=== PATIENT | male | born 1990 | race Caucasian/White ===

== ENCOUNTER 2023-11-11 14:26 | Outpatient (AMB) | payer BC, SELFPAY ==
[2023-11-11 14:27] VITALS: BP 110/76; PULSE 67; TEMP 36.9; O2SAT 99; BMI 20.4
--- NOTE | 2023-11-11 14:27 | AM.OFFWIN_ITS ---
Intake Vital Signs 3 11/11/23 14:27 Height 5 ft 7 in Weight 58.967 kg BMI 20.4 BP 110/76 Blood Pressure Location Rt brachial Position Sitting Pulse 67 Pulse Source Pulse Oximeter Temp 98.5 F Temp Source Oral Pulse Oximetry (%) 99 Oxygen Delivery Method Room Air Intake Visit Reasons: [employer] Rt leg swollen vein Intake Note: pt here for swollen vein in Rt. leg. Was moving boxes, pivoted box on my knee and felt pain Patient Tobacco Use Status: Never used Tobacco Allergies No Known Allergies Allergy (Verified 11/11/23 14:33) Do you need a note to return to daycare/school/sports/work: No HPI [employer] Rt leg swollen vein 2 HPI0 Details Patient presents with right anterior superior knee pain that began this morning while moving boxes into a new living space. He denies acute trauma but noted after pushing a box with his knee he noted the area of swelling, tenderness. He notes there is now less swelling after rest. He denies any history of injury or surgery with the knee. Denies other injury. 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 [facility] Social History Patient Tobacco Use Status: Never used Tobacco Review of Systems Const Reports as per HPI and Reports no additional complaints Musc Reports no additional complaints and Reports as per HPI Skin/Breast Denies lesions Neuro Reports no additional complaints and Reports as per HPI Physical Exam Vital Signs: Last Vital Signs Temp 98.5 F 11/11/23 14:27 Pulse 67 11/11/23 14:27 BP 110/76 11/11/23 14:27 Pulse Ox 99 11/11/23 14:27 Oxygen Delivery Method Room Air 11/11/23 14:27 BMI result Body Mass Index 20.4 Const General: cooperative, comfortable and no acute distress Orientation/consciousness: patient oriented x3 Neuro General: patient oriented x3 Extrem Right lower extremity: normal to inspection and full ROM Left lower extremity: normal to inspection, full ROM, normal capillary refill, no joint enlargement, hip/thigh Details: normal to inspection; no tenderness, no swelling and ROM abnormal and knee (Distal neurovascular status intact) Details: normal to inspection, tenderness (Mild along the superior knee at quadriceps tendon), normal ROM, knee ligament exam normal, Karel's Test Details: negative medially and laterally and other (No patellar motion tenderness); no swelling, no ecchymosis and no crepitus; no edema Knee images: 2 1. Area of tenderness Assessment & Plan Assessment & Plan (1) Right knee sprain: Code(s): S83.91XA - Sprain of unspecified site of right knee, initial encounter Qualifiers: Encounter type: initial encounter Involved ligament of knee: u nspecified ligament Qualified Code(s): S83.91XA - Sprain of unspecified site of right knee, initial encounter Plan: Offered patient x-ray, declines today. Advised on self-care rest ice elevate NSAIDs. Work note given for light duty for the remainder of the week. Return to clinic if symptoms do not improve over the next 1-2 weeks or worsen with swelling, pain, giving out, locking. Coding Level of Care Code New Pt Level 3 (82219) Diagnoses Sprain of right knee, unspecified ligament, initial encounter S83.91XA Encounter type: initial encounter Involved ligament of knee: unspecified ligament
== END 2023-11-11 14:49 | disposition home or self-care (01) ==
PROVIDERS: Visit Provider Physician Assistant
DX: S83.91XA Sprain of unspecified site of right knee, initial encounter (principal)
CPT/HCPCS: 99203

== ENCOUNTER 2024-07-03 22:44 | Emergency (ER) | payer BC, SELFPAY ==
[2024-07-03 22:51] VITALS: BP 121/70; PULSE 72; RESP 16; TEMP 37.1; O2SAT 99; BMI 20.4
--- NOTE | 2024-07-04 01:44 | ED_ITS ---
HPI - Animal Bite General Chief Complaint: Animal Bite Stated Complaint: cat bite left hand Time Seen by Provider: 07/04/24 01:36 Source: patient Mode of arrival: ambulatory Limitations: no limitations History of Present Illness ED Provider: Dr. Kelly Patterson HPI narrative: Patient comes to the emergency room complaining of a cat bite to left hand. Patient states that the cat is up-to-date with its immunizations, patient is up-to-date with his Tdap shot. According to the patient, the cat is usually a very easy going cat. However, today the patient gave the cat a bath, and because it was cold, patient attempted to blow dry the cat, it got scared about the blow rotary drier and then bit the patient in the hand. Patient states that he has soaked his hand in water and soap, applied alcohol and then came to the emergency room. Patient states that his hand feels well, almost no pain. Related Data Previous Rx's ?Medication ?Instructions ?Recorded amoxicillin 500 mg-potassium 1 tab PO TID 5 days #15 tabs 07/04/24 clavulanate 125 mg tablet (Augmentin) ibuprofen 600 mg tablet 600 mg PO Q8H PRN fever or pain 07/04/24 #20 tabs Allergies Allergy/AdvReac Type Severity Reaction Status Date / Time No Known Allergies Allergy Verified 07/03/24 22:54 Review of Systems Review of Systems: Constitutional : No Weight loss, No Fever, No Chills, No Night Sweats, No Fatigue, No Malaise ENT/Mouth : No Hearing loss, No Ear Pain, No Nasal Congestion, No Sinus Pain, No Hoarseness, No sore throat, No Rhinorrhea, No Swallowing Difficulty Eyes: No Eye Pain, No Swelling, No Redness, No Foreign Body, No Discharge, No Vision Changes Cardiovascular : No Chest Pain, No SOB, No Dyspnea on Exertion, No Orthopnea, No Edema, No Palpitations Respiratory : No Cough, No Sputum, No Wheezing, No Smoke Exposure, No Dyspnea Gastrointestinal : No Nausea, No Vomiting, No Diarrhea, No Constipation, No abdominal Pain, No Hematochezia, No Melena Genitourinary : no irregular bleeding, No Dysuria, No Urinary Frequency, No Hematuria, No Urinary Incontinence, No Urgency, No Flank Pain, No Urinary Flow Changes, No Hesitancy Musculoskeletal : No joint pain, No Myalgias, No Joint Swelling Skin : Puncture wound/cat bite to the left hand Neuro : No Weakness, No Numbness, No Paresthesias, No Loss of Consciousness, No Dizziness, No Headache Psych : No Anxiety/Panic, No Depression, No SI/HI/AH/VH, No Social Issues, Heme/Lymph: No Bruising, No Bleeding,No Lymphadenopathy Endocrine : No Polyuria, No Polydipsia, No Temperature Intolerance [facility] Social History Social History Patient Tobacco Use Status: Never used Tobacco Do you have a plan to hurt others: No Plan Physical Exam ED Vital Signs: Vital Signs - 24 hr 07/03/24 22:51 Temperature 98.7 F Pulse Rate 72 Respiratory Rate 16 Blood Pressure 121/70 Pulse Oximetry 99 Oxygen Delivery Method Room Air BMI result Body Mass Index 20.4 Const Other: Constitutional : No Weight loss, No Fever, No Chills, No Night Sweats, No Fatigue, No Malaise ENT/Mouth : No Hearing loss, No Ear Pain, No Nasal Congestion, No Sinus Pain, No Hoarseness, No sore throat, No Rhinorrhea, No Swallowing Difficulty Eyes: No Eye Pain, No Swelling, No Redness, No Foreign Body, No Discharge, No Vision Changes Cardiovascular : No Chest Pain, No SOB, No Dyspnea on Exertion, No Orthopnea, No Edema, No Palpitations Respiratory : No Cough, No Sputum, No Wheezing, No Smoke Exposure, No Dyspnea Gastrointestinal : No Nausea, No Vomiting, No Diarrhea, No Constipation, No abdominal Pain, No Hematochezia, No Melena Genitourinary : no irregular bleeding, No Dysuria, No Urinary Frequency, No Hematuria, No Urinary Incontinence, No Urgency, No Flank Pain, No Urinary Flow Changes, No Hesitancy Musculoskeletal : No joint pain, No Myalgias, No Joint Swelling Skin : Small puncture wounds to the dorsal aspect of the index finger proximally and 1 puncture wound on the palmar aspect on the index finger Neuro : No Weakness, No Numbness, No Paresthesias, No Loss of Consciousness, No Dizziness, No Headache Psych : No Anxiety/Panic, No Depression, No SI/HI/AH/VH, No Social Issues, Heme/Lymph: No Bruising, No Bleeding,No Lymphadenopathy Endocrine : No Polyuria, No Polydipsia, No Temperature Intolerance Medical Decision Making Medical Decision Making MDM Narrative: Patient's wound was cleaned again, then patient was given the 1st dose of Augmentin. Patient states he is up-to-date with his Tdap in the cat is up-to-date with all of its immunizations. Discharge Plan Discharge Clinical Impression: Cat bite Patient Disposition: Home, Self-Care Instructions: Animal Bite (ED) Additional Instructions: Please follow-up with your primary care physician tomorrow. If you have any worsening or new symptoms, please return to the emergency room or call 911 Prescriptions: New amoxicillin-pot clavulanate [Augmentin] 500-125 mg tablet 1 tab PO TID 5 Days Qty: 15 0RF ibuprofen 600 mg tablet 600 mg PO Q8H PRN (Reason: fever or pain) Qty: 20 0RF Print Language: German
[2024-07-04] MEDS: Amoxicillin/Potassium Clav 500 MG TABLET PO (01:48)
--- NOTE | 2024-07-04 01:49 | PC.NURSE ---
pt medicated according to mar
[2024-07-04 02:00] VITALS: BP 121/70; PULSE 72; RESP 16; TEMP 37.1; O2SAT 99
== END 2024-07-04 02:00 | disposition home or self-care (01) ==
PROVIDERS: Emergency Provider Emergency Medicine
DX: S61.452A Open bite of left hand, initial encounter (principal); W55.01XA Bitten by cat, initial encounter; Y93.9 Activity, unspecified; Y92.9 Unspecified place or not applicable; Y99.8 Other external cause status
CPT/HCPCS: 99282